=== PATIENT | female | born 1965 | race Caucasian/White ===

== ENCOUNTER → 2017-11-04 | Outpatient (CLI) | payer BC | END | disposition home or self-care (01) | LOC: CFH 09:43 | PROVIDERS: ATTEND Nurse Practitioner Family | DX: Z12.31 Encounter for screening mammogram for malignant neoplasm of breast (principal); N92.0 Excessive and frequent menstruation with regular cycle; R10.2 Pelvic and perineal pain | CPT/HCPCS: 76856; 77067 ==

== ENCOUNTER 2018-07-24 17:36 | Emergency (ER) | payer BC, OTHER ==
[~2018-07-24] VITALS: Ht 160 cm; Wt 94.6 kg
[2018-07-24 17:48] VITALS: BP 146/85
== END 2018-07-24 19:37 | disposition home or self-care (01) ==
LOC: ED 18:39
DX: S16.1XXA Strain of muscle, fascia and tendon at neck level, initial encounter (principal); V49.49XA Driver injured in collision with other motor vehicles in traffic accident, initial encounter; Y93.89 Activity, other specified; Y92.89 Other specified places as the place of occurrence of the external cause; Y99.8 Other external cause status
CPT/HCPCS: 72125; 99284